=== PATIENT | female | born 1985 | race Caucasian/White ===

== ENCOUNTER 2017-07-11 01:01 | Emergency (ER) | payer SELFPAY ==
[~2017-07-11] VITALS: Ht 170.2 cm; Wt 54.4 kg
--- NOTE | 2017-07-11 02:04 | NUR ---
Patient has left middle finger laceration. Lac noted on psoterior and anterior of middle finger with swelling. Capillary less than 3 second.
--- NOTE | 2017-07-11 02:48 | NUR ---
Dr. Cleaning at bedside for MSE.
[2017-07-11] MEDS ORDERED: BUPIVACAINE 0.25% 30 ML VIAL TP ONE (03:00)
[2017-07-11] MEDS ORDERED: CEPHALEXIN MONOHYDRATE 500 MG CAPSULE ONE (04:07)
[2017-07-11] MEDS ORDERED: IBUPROFEN 800 MG TABLET PO ONE (04:15)
[2017-07-11] MEDS ORDERED: CEPHALEXIN MONOHYDRATE 500 MG CAPSULE PO ONE (04:15)
[2017-07-11] MEDS ORDERED: IBUPROFEN 800 MG TABLET ONE (04:20)
--- NOTE | 2017-07-11 04:20 | NUR ---
Patient discharged to home in stable conditon. Written and verbal after care instructions given. Patient verbalizes understanding of instructions. Pt ambulated out of ER with steady gait, no acute signs of distress, VSS, all belongings taken.
[2017-07-11 04:29] VITALS: BP 107/68
== END 2017-07-11 04:20 | disposition home or self-care (01) ==
LOC: ER 01:02
DX: S66.393A Other injury of extensor muscle, fascia and tendon of left middle finger at wrist and hand level, initial encounter (principal); W45.8XXA Other foreign body or object entering through skin, initial encounter; Y93.89 Activity, other specified; Y92.89 Other specified places as the place of occurrence of the external cause; Y99.8 Other external cause status
CPT/HCPCS: 73130; A4217; A4663; J3490